=== PATIENT | male | born 1985 | race Caucasian/White ===

== ENCOUNTER 2016-10-25 19:44 | Emergency (ER) | payer OTHER ==
[~2016-10-25] VITALS: Ht 170.2 cm; Wt 83.1 kg
[2016-10-25 19:45] VITALS: BP 138/91
[2016-10-25] MEDS ORDERED: DERMABOND TOPICAL SKIN ADHESIVE TOP ONE (20:15)
== END 2016-10-25 20:23 | disposition home or self-care (01) ==
LOC: M ED 20:16
DX: S01.111A Laceration without foreign body of right eyelid and periocular area, initial encounter (principal); W22.8XXA Striking against or struck by other objects, initial encounter; Y92.019 Unspecified place in single-family (private) house as the place of occurrence of the external cause; Y93.9 Activity, unspecified; Y99.8 Other external cause status; F17.200 Nicotine dependence, unspecified, uncomplicated

== ENCOUNTER 2017-01-12 09:18 | Emergency (ER) | payer OTHER ==
[~2017-01-12] VITALS: Ht 170.2 cm; Wt 87.5 kg
[2017-01-12] MEDS ORDERED: TETRACAINE 0.5% OPHTH SOLN 4ML OS ONE (09:45)
[2017-01-12] MEDS ORDERED: FLUORESCEIN OPHTH 1 MG STRIP OS ONE (09:45)
[2017-01-12] MEDS ORDERED: ERYT5OPO OS (10:05)
[2017-01-12 10:06] VITALS: BP 135/73
[2017-01-12] MEDS ORDERED: ERYTHROMYCIN OPHTH OINT OS ONE (10:15)
== END 2017-01-12 10:09 | disposition home or self-care (01) ==
LOC: M ED 09:18
DX: S05.02XA Injury of conjunctiva and corneal abrasion without foreign body, left eye, initial encounter (principal); Z72.0 Tobacco use; W50.0XXA Accidental hit or strike by another person, initial encounter; Y92.89 Other specified places as the place of occurrence of the external cause; Y93.89 Activity, other specified; Y99.9 Unspecified external cause status